=== PATIENT | male | born 1985 | race Hispanic/Latino ===

== ENCOUNTER 2023-04-13 16:37 | Emergency (ER) | payer OTHER ==
[~2023-04-13] VITALS: Ht 175.3 cm; Wt 115.7 kg
[2023-04-13 19:02] LABS: ADD UA MICROSCOPIC YES; APPEARANCE,URINE CLEAR (CLEAR); BILIRUBIN,URINE NEGATIVE (NEGATIVE); COLOR,URINE LIGHT-YELLOW (YELLOW); GLUCOSE, URINE (UA) NEGATIVE (NEGATIVE); KETONES,URINE NEGATIVE (NEGATIVE); LEUKOCYTE ESTERASE ,URINE NEGATIVE Leu/uL (NEGATIVE); NITRATE,URINE NEGATIVE (NEGATIVE); OCCULT BLOOD,URINE MODERATE (NEGATIVE); PH,URINE 6.5 (5.0-8.0); PROTEIN,URINE NEGATIVE (NEGATIVE); UROBILINOGEN,URINE 0.2 mg/dL (0.2-1.0)
[2023-04-13 19:04] LABS: BACTERIA,URINE RARE /HPF (None Seen); WBC,URINE 0-1 /HPF (0-1)
[2023-04-13] MEDS ORDERED: HYDROCODONE/ACETAMINOPHEN 5/325 MG TAB PO ONE (19:30)
[2023-04-13 22:48] VITALS: BP 138/74; PULSE 84; RESP 18; O2SAT 98
== END 2023-04-13 23:02 | disposition home or self-care (01) ==
LOC: EDH 16:37
DX: R36.1 Hematospermia (principal); N43.3 Hydrocele, unspecified; I10 Essential (primary) hypertension
CPT/HCPCS: 76870; 81001; 87486; 87797

== ENCOUNTER 2024-04-23 16:36 | Emergency (ER) | payer OTHER ==
[~2024-04-23] VITALS: Ht 172.7 cm; Wt 115.9 kg
[2024-04-23 18:50] VITALS: BP 167/103; PULSE 84; RESP 20; TEMP 98.3; O2SAT 98
--- NOTE | 2024-04-23 19:18 | ERN ---
ED Note History of Present Illness Stated Complaint: ANKLE INJURY Chief Complaint: Ankle Problem Time Seen by MD: 17:15 Time Seen by Midlevel: 17:45 Dictation: Mr. Flor is a year old male with history obesity who presented to the emergency department this evening for evaluation of ankle pain. He states that approximately one week ago he fell from the steps in his home and rolled his left ankle. He did not seek treatment at that time and he has continued to walk on it. He states now it is more painful and swollen. He is having pain with weight-bearing. He denies additional injury or concerns. He has not taken anything for pain or discomfort. Allergies: Coded Allergies: No Known Allergies (Unverified Allergy, Unknown, 04/13/23) Past Medical History Past Medical History: No Pertinent History Additional Past Medical Hx: DENIES PMHX Surgical History: None Surgical History Other: DENIES PSHX PSYCH History: no pertinent psych hx Social History: Negative RN Note Reviewed/Agreed w/PFSH: Yes Review of System Dictation REVIEW OF SYSTEMS: CONSTITUTIONAL: Patient denies fevers, chills, sweats and weight changes. EYES: Patient denies any visual symptoms. EARS, NOSE, AND THROAT: No difficulties with hearing. No symptoms of rhinitis or sore throat. CARDIOVASCULAR: Patient denies chest pains, palpitations, orthopnea and paroxysmal nocturnal dyspnea. RESPIRATORY: No dyspnea on exertion, no wheezing or cough. GI: No nausea, vomiting, diarrhea, constipation, abdominal pain, hematochezia or melena. : No urinary hesitancy or dribbling. No nocturia or urinary frequency. No abnormal urethral discharge. MUSCULOSKELETAL: Reports pain to left ankle. Reports swelling to left foot and ankle. He reports pain with weight-bearing. NEUROLOGIC: No chronic headaches, no seizures. Patient denies numbness, tingling or weakness. PSYCHIATRIC: Patient denies problems with mood disturbance. No problems with anxiety. ENDOCRINE: No excessive urination or excessive thirst. DERMATOLOGIC: Patient denies any rashes or skin changes. Initial Vital Sign VS Vital Signs Date Time Temp Pulse Resp B/P (MAP) Pulse Ox O2 Delivery O2 Flow Rate FiO2 04/23/24 16:37 99.0 77 18 179/97 96 0 04/23/24 16:41 Room Air* 21 Physical Exam Dictation Vital signs: Reviewed. Afebrile Constitutional: No acute distress. Non-toxic appearing. Head/Face: Normocephalic, atraumatic. Eyes: Periorbital areas with no swelling, redness, or edema. Lids and lashes are normal. Conjunctival injection is absent. Sclera anicteric. Pupils equal, round, reactive to light. ENT: Pinnas intact and no signs of trauma or erythema. Ear canals clear and no discharge. TMs no erythema. No nasal discharge or bleeding noted. Oropharynx with no exudate, redness, swelling, masses, exudates, or evidence of obstruction. Uvula midline. Mucous membranes moist. Neck: Trachea midline, no masses palpated, and no cervical lymphadenopathy. No swelling. Supple, full range of motion. Chest/Axilla: No tenderness, no crepitus, no paradoxical movement, no retractions. Cardiovascular: Regular rate, regular rhythm, no murmur, no gallops. Symmetric pulses. No peripheral edema. BP is elevated 179/97. Respiratory: Respirations even and unlabored. Lung sounds clear; no wheezes, rales or rhonchi. Room air SpO2 99% Gastrointestinal: Inspection is normal. No distention is appreciated. Bowel sounds are normal. No mass or organomegaly . There is no tenderness. No rebound. No rigidity. No voluntary or involuntary guarding. No Murray's sign. Neurological: Normal speech, gross motor function intact, gross sensory function intact. No focal weakness/Paresthesia. Musculoskeletal/Extremities: Symmetric pulses. There is impressive swelling to lateral aspects of the left ankle as well as the dorsum of the left foot. He is pain upon palpation of the ankle as well as lower tib-fib. Range of motion is intact; elicits pain. He has good color, warmth, movement, and sensation to left toes. Capillary refill is brisk. Integumentary: Intact. Skin is normal color, warm and dry. Cap refill less than 3 seconds. Results (Laboratory/Radiology) X-RAY Comment: PATIENT: MARTI FLOR MR#: [id number] : 1985 SEX: M AGE: 38 LOCATION: [facility] ORDER 13 STATUS: [facility] REPORT#: [id number] SERVICE 12 REASON: injury ORDERING PHYSICIAN: KELLI CARRILLO NP PROCEDURE: TIBFIB LT - TIBIA/FIBULA 2VWS LT LEFT TIBIA AND FIBULA RADIOGRAPHS - 2 VIEWS INDICATION: Pain COMPARISON: None. FINDINGS: AP and lateral views. No evidence for acute fracture or dislocation. No radiopaque foreign body noted. IMPRESSION: No evidence for fracture or dislocation. DICTATED BY: AMOS KENNEDY MD DATE: 04/23/241951 ELECTRONICALLY SIGNED BY: AMOS KENNEDY MD DATE: 04/23/241954 PATIENT: MARTI FLOR MR#: [id number] : 1985 SEX: M AGE: 38 LOCATION: [facility] ORDER 13 STATUS: [facility] REPORT#: [id number] SERVICE 12 REASON: injury ORDERING PHYSICIAN: KELLI CARRILLO NP PROCEDURE: [id number] - ANKLE COMP 3VWS LT LEFT ANKLE RADIOGRAPHS - 3 VIEWS INDICATION: Pain COMPARISON: None FINDINGS: AP, lateral, and oblique views. Slightly displaced cortical fracture fragment near the inferior talofibular articulation, perhaps arising off the lateral margin of the posterior inferior talus rather than posterior superolateral calcaneus. The talar dome is intact. Ankle mortise and tibial plafond are well maintained. No significant joint effusion is present. No radiopaque foreign body noted. IMPRESSION: Slightly displaced cortical fracture fragment near the inferior talofibular articulation. DICTATED BY: AMOS KENNEDY MD DATE: 04/23/241951 ELECTRONICALLY SIGNED BY: AMOS KENNEDY MD DATE: 04/23/241955 ED Course ED Course Orders Procedure Category Date Status Time Ankle Comp 3vws Lt RAD 04/23/24 Resulted 19:13 Tibia/Fibula 2vws Lt RAD 04/23/24 Resulted 19:13 Hydrocodone/Apap PHA 04/23/24 Complete 5/325 (Escalante 5/325mg) 19:30 Apply Ice Pack To: CPOE 04/23/24 Transmitted (Er) 19:14 Current Medications Medications (Trade) Dose Ordered Sig/Devora Route PRN Reason Start Time Stop Time Status Last Admin Dose Admin Acetaminophen/ Hydrocodone Bitart (NORco 5/325MG) 1 tab ONCE ONCE PO 04/23/24 19:30 04/23/24 19:31 DC 04/23/24 19:20 Vital Signs Date Time Temp Pulse Resp B/P (MAP) Pulse Ox O2 Delivery O2 Flow Rate FiO2 04/23/24 18:50 98.2 84 20 167/103 98 Room Air* 0 21 04/23/24 16:41 99.0 77 18 179/97 96 Room Air* 0 21 04/23/24 16:37 99.0 77 18 179/97 96 0 Uneventful ED course. BP is trending down. Patient received dose Escalante x1 for discomfort. X-ray tib/fib showed no fracture or dislocation. The x-ray of the left ankle reveal slightly displaced cortical fracture fragments near the inferior talofibular articulation. Findings were discussed with patient and his mother. Medical Decision Making MDM MDM: Differential diagnosis: ankle fracture, tib/fib fracture, sprain Rationale: Tests considered and ordered secondary to shared decision making include: xray Previous outside records reviewed: Old ER visits. Risk of complication and/or morbidity or mortality of patient management: None Medications-Per medication reconciliation Need for hospitalization: Patient does not meet criteria for hospitalization. Need for emergency major/minor surgery: No There are no social concerns with this patient. Prescription drug management Prescriptions will include symptomatic care Patient's prior external medical records from other ER visits were reviewed by me as indicated. Prior testing and results from previous visits were reviewed. Prior tests were taken into account with medical decision making and resource utilization, independent historian/historians were used to obtain complete medical history. I independently interpreted the test that were performed, results were reviewed by me and considered findings on radiology if ordered. Medical management and examination interpretation discussions were had by me with other qualified healthcare professionals as indicated for the patient's care. DX & DISP Disposition: Discharge Departure Impression: Primary Impression: Fracture dislocation of left ankle Additional Impression: Elevated blood pressure reading Condition: Stable Scripts Acetaminophen with Codeine (Acetaminophen-Cod #3 Tablet) 300 Mg-30 Mg Tablet 1 EACH PO q8 hours PRN, #10 TAB 0 Refills Prov: KELLI CARRILLO [employer] 04/23/24 Ibuprofen (Ibuprofen) 600 Mg Tablet 600 MG PO Q6H PRN for PAIN, #15 TAB Prov: KELLI CARRILLO [employer] 04/23/24 Additional Instructions: Rest. Ice. Elevation. Wear a posterior splint. No weight-bearing; use c rutches. Monitor circulation; monitor left toes for color, warmth, movement, sensation, and capillary refill. May take ibuprofen as needed for [id number] pain. May take Tylenol No. 3 as needed for more severe pain. You will need to follow up with orthopedic surgeon, Dr. Nigel Dasilva. You will need to call office for appointment on Thursday. Keep a log of your blood pressures. Follow up with your primary care provider. Return to the emergency department for any worsening of symptoms or concerns. Referrals: LONG FISHER NP (PCP) NIGEL DASILVA DO Time of Disposition: 20:34 KELLI CARRILLO NP Apr 23, 2024 19:18
[2024-04-23] MEDS: HYDROcodone/APAP 5/325 1 TAB TABLET PO ONE (19:20)
--- NOTE | 2024-04-23 19:55 | HMCIMG ---
LEFT TIBIA AND FIBULA RADIOGRAPHS - 2 VIEWS INDICATION: Pain COMPARISON: None. FINDINGS: AP and lateral views. No evidence for acute fracture or dislocation. No radiopaque foreign body noted. IMPRESSION: No evidence for fracture or dislocation.
--- NOTE | 2024-04-23 19:56 | HMCIMG ---
LEFT ANKLE RADIOGRAPHS - 3 VIEWS INDICATION: Pain COMPARISON: None FINDINGS: AP, lateral, and oblique views. Slightly displaced cortical fracture fragment near the inferior talofibular articulation, perhaps arising off the lateral margin of the posterior inferior talus rather than posterior superolateral calcaneus. The talar dome is intact. Ankle mortise and tibial plafond are well maintained. No significant joint effusion is present. No radiopaque foreign body noted. IMPRESSION: Slightly displaced cortical fracture fragment near the inferior talofibular articulation.
[2024-04-23] MEDS ORDERED: ACET-2079 PO (20:32)
[2024-04-23] MEDS ORDERED: IBUP-2070 PO (20:32)
== END 2024-04-23 21:05 | disposition home or self-care (01) ==
LOC: EDH 16:36
DX: S82.832A Other fracture of upper and lower end of left fibula, initial encounter for closed fracture (principal); R03.0 Elevated blood-pressure reading, without diagnosis of hypertension; Y99.8 Other external cause status; W10.9XXA Fall (on) (from) unspecified stairs and steps, initial encounter; Y93.89 Activity, other specified; Y92.89 Other specified places as the place of occurrence of the external cause
CPT/HCPCS: 73590; 73610; 99284